=== PATIENT | female | born 2000 | race Caucasian/White ===

== ENCOUNTER 2022-07-29 08:00 | Outpatient (CLI) | payer OTHER ==
[2022-07-29 17:41] LABS: BASOPHILS # (AUTO) 0.1 10^3/uL (0.0-0.1); EOSINOPHILS % (AUTO) 0.5 %; HCT - HEMATOCRIT 40.5 % (37.0-47.0); HGB - HEMOGLOBIN 13.5 g/dL (12.0-16.0); LYMPHOCYTES # (AUTO) 2.8 10^3/uL (1.5-3.5); LYMPHOCYTES % (AUTO) 45.2 %; MEAN CORPUSCULAR HGB CONC 33.3 g/dL (32.0-36.0); MEAN CORPUSCULAR VOLUME 93.1 fL (81.0-99.0); MEAN PLATELET VOLUME 9.1 fL (7.9-10.8); MONOCYTES # (AUTO) 0.3 10^3/uL (0.0-1.0); MONOCYTES % (AUTO) 5.3 %; NEUTROPHILS % (AUTO) 47.8 %; PLT - PLATELET COUNT 322 10^3/uL (130-450); RED BLOOD COUNT 4.35 10^6/uL (4.20-5.40); RED CELL DISTRIBUTION WIDTH 12.7 % (12.0-15.0); WHITE BLOOD COUNT 6.2 x10^3/uL (4.8-10.8)
== END 2022-07-29 23:59 | disposition home or self-care (01) ==
LOC: LAB.N 08:00
PROVIDERS: ATTEND Physician Assistant Medical
DX: N92.0 Excessive and frequent menstruation with regular cycle (principal)
CPT/HCPCS: 36415; 85025

== ENCOUNTER 2022-10-19 08:00 | Outpatient (CLI) | payer OTHER | END 2022-10-19 23:59 | disposition home or self-care (01) | LOC: LAB.N 08:00 | PROVIDERS: ATTEND Physician Assistant | DX: N10 Acute pyelonephritis (principal) | CPT/HCPCS: 87086 ==

== ENCOUNTER 2024-07-22 08:28 | Outpatient (CLI) | payer OTHER ==
--- NOTE | 2024-07-24 13:05 | MRI Report ---
PROCEDURE: Lower Leg (Tib-Fib) RT WO INDICATIONS: COMPARTMENT SYNDROME TECHNIQUE: Noncontrast coronal and sagittal T1 spin echo and STIR; axial T1 spin echo and T2 fast spin echo with fat saturation through the right lower leg. COMPARISON: None. FINDINGS: Image quality: Excellent. Bones: The visualized bone marrow demonstrates normal signal on all sequences. The overlying cortex appears intact. No fractures lines or intra-osseous lesions. Soft tissues: There is mild edema involving distal portion of soleus muscle. No other muscle or tendo n signal abnormalities. Subcutaneous tissues appear normal as well. No soft tissue masses are presen t. IMPRESSION: 1. Suggestion of low-grade strain involving distal soleus muscle just above the ankle level. No other muscle or tendon signal abnormalities. No MR evidence of compartment syndrome. 2. No marrow signal abnormality. No fracture or dislocation. Reviewed by: Anurag Marie MD on 07/24/2024 1:04 PM PDT Approved by: Anurag Marie MD on 07/24/2024 1:04 PM PDT Station ID: [id number]
== END 2024-07-22 08:29 | disposition home or self-care (01) ==
LOC: DI 08:28
DX: M79.604 Pain in right leg (principal)